=== PATIENT | female | born 2000 | race Caucasian/White ===

== ENCOUNTER 2024-11-11 06:16 | Day surgery (SDC) | payer OTHER, SELFPAY ==
[2024-11-11] VITALS (13 sets, daily range): BP systolic 68–112; BP diastolic 44–68; BMI 25.9
[2024-11-11] MEDS: NORMOSOL-R/PLASMALYTE-A 1000 IV (08:00)
== END 2024-11-11 12:40 | disposition home or self-care (01) ==
LOC: SDS 06:16
PROVIDERS: ATTENDING PHYSICIAN Orthopaedic Surgery Hand Surgery
DX: S63.592A Other specified sprain of left wrist, initial encounter (principal); X58.XXXA Exposure to other specified factors, initial encounter
CPT/HCPCS: 29846